=== PATIENT | female | born 1995 | race Two or more races ===

== ENCOUNTER 2024-08-06 00:52 | Emergency (ER) | payer MEDICAID, SELFPAY ==
[2024-08-06 00:55] VITALS: BMI 25.4
[2024-08-06 01:08] VITALS: BP 121/82; PULSE 85; RESP 18; TEMP 36.8; O2SAT 97
--- NOTE | 2024-08-06 01:21 | XR_ITS ---
Examination: Foot, right, 3 views Technique: AP, oblique, lateral views foot, 3 views Date and time of exam: August 06, 2024 0127 hours INDICATIONS: Patient stepped on nail 4 hours ago with injury to foot, foot pain FINDINGS: No acute fracture No dislocation No opaque foreign body IMPRESSION: No opaque foreign body
--- NOTE | 2024-08-06 01:23 | EDNOTE_ITS ---
Lower Extremity Injury RME/HPI General Chief Complaint: Ankle/Foot Injury Stated Complaint: STEPPED ON MANE NAIL ABOUT 4 HRS AGO R FOOT Time Seen by Provider: 08/06/24 01:01 Arrival date/time: 08/06/24 00:52 RME / HPI RME / HPI Narrative: Very pleasant 28-year-old female presents to the ED with a complaint of right foot pain secondary to stepping on a mane nail. She states she was wearing rubber soled sandals. She was playing volleyball when the ball went out into the field, she went after it and stepped on a mane nail. She pulled it out immediately. Her last tetanus shot was when she was in high school, greater than 10 years. She took Motrin prior to arrival. She denies any numbness or tingling distally. Related Data Previous Rx's ?Medication ?Instructions ?Recorded cephalexin 500 mg capsule 500 mg PO BID 5 days #10 cap s 08/06/24 Allergies Allergy/AdvReac Type Severity Reaction Status Date / Time amoxicillin Allergy Unknown Verified 08/06/24 01:02 Review of Systems Review of Systems Systems Reviewed: All systems reviewed, normal except as documented Past Medical History Past Medical History CARDIAC: Negative Congestive Heart Failure RESPIRATORY: Negative Chronic Obstructive Pulmonary Disease (COPD) GENITOURINARY: Negative Renal Disease ENDOCRINE: Negative Diabetes Mellitus Type 1 or Diabetes Mellitus Type 2 Social History SMOKING STATUS: Never smoker ED Exam Narrative Physical exam: Alert and oriented, very pleasant 28-year-old female, no acute distress. Lungs are clear, regular rate and rhythm without murmurs. Small puncture wound noted to the plantar surface of the right foot. No erythema noted. No drainage. Minimal tenderness surrounding the puncture wound site. CMS intact distally. Course Course Course Narrative: Tdap updated. Wound was cleansed and irrigated. Right foot x-ray obtained. No obvious foreign body noted. Quality Measures none Orders Category Date Time Status Cleanse Wound NEEDED Care 08/06/24 01:26 Completed TDap [Obtain Tdap Consent] X1 Care 08/06/24 01:21 Completed XR foot comp RT min 3V Stat Exams 08/06/24 01:21 Taken TET,DIP/PERT AC (Adult)-Tdap [Boostrix Adult (Tdap) Med 08/06/24 01:21 Discontinued Vacc] 0.5 ml IMI .ONCE ONE Vital Signs Vital signs: Vital Signs Temperature 98.3 F 08/06/24 01:08 Pulse Rate 85 08/06/24 01:08 Respiratory Rate 18 08/06/24 01:08 Blood Pressure 121/82 08/06/24 01:08 Pulse Oximetry (%) 97 08/06/24 01:08 Oxygen Delivery Method Room Air 08/06/24 01:08 Extremity Injury, Lower MDM Narrative MDM Narrative:: Very pleasant 28-year-old female presents to the ED with a complaint of right foot pain secondary to stepping on a mane nail. She states she was wearing rubber soled sandals. She was playing volleyball when the ball went out into the field, she went after it and stepped on a mane nail. She pulled it out immediately. Her last tetanus shot was when she was in high school, greater than 10 years. She took Motrin prior to arrival. She denies any numbness or tingling distally. Alert and oriented, very pleasant 28-year-old female, no acute distress. Lungs are clear, regular rate and rhythm without murmurs. Small puncture wound noted to the plantar surface of the right foot. No erythema noted. No drainage. Minimal tenderness surrounding the puncture wound site. CMS intact distally. Tdap updated. Wound was cleansed and irrigated. Right foot x-ray obtained. No obvious foreign body noted. Patient was discharged home in stable and improved condition with a prescription for Keflex 500 mg twice daily x 5 days to prevent infection. Patient data External records reviewed:: None Clinical information provided by:: patient Social determinants that could affect healthcare access:: none Patient has the following chronic illnesses:: N/A How is presenting disease/condition affected by chronic disease/condition?: no chronic disease Evaluation data The following diagnostics were reviewed and interpreted by me:: radiology exam(s) Lab and/or radiology exams considered but not ordered:: N/A Interpretation Summary: Right foot: No obvious foreign body noted. Medications / Prescriptions Medications or Prescriptions considered but not ordered:: N/A Medication administrations:: Medication Administration History Discontinued Medications Diphtheria/Tetanus/Acell Pertussis (Diphth,Pertuss(Acell),Tet Vac 0.5 Ml Syr- Adult) 0.5 ml IMi .ONCE ONE Stop: 08/06/24 01:22 Last Admin: 08/06/24 01:54 Dose: 0.5 ml Documented By: JEAN Tuckernavid given/updated. Consultations Consultation(s) initiated? (list below): No Diagnosis Extremity Injury, Lower Differential Diagnosis: puncture wound of foot Most likely diagnosis given after review of the tests above:: Puncture wound right foot Admission Indicated Admission indicated?: not indicated Explain why admission is indicated or not indicated:: Patient is stable for discharge Admission Request Was there a request for admission?: No Admission Attestation Admission request attestation: N/A Disposition Plan Disposition Plan: Discharge Discharge Attestation Discharge Attestation: The patient and all family members were given an opportunity to ask questions and understood the discharge instructions. Discharge instructions specifically effects, indications for sooner follow up or return to the emergency department, and the expected course of current diagnosis. Patient condition: Stable Discharge Plan Plan Patient Disposition: HOME (Self Care) Discharge Disposition comment: Stable and improved Prescriptions/Referrals Prescriptions/Med Rec: New cephalexin 500 mg capsule 500 mg PO BID 5 Days Qty: 10 0RF Referrals: No Primary/Family,Physician [Primary Care Provider] - In 1 week Problem List Clinical Impression: Puncture wound of foot Patient/Caregiver Discharge Instructions Education Materials: ED Puncture Wound (Foot) Additional Instructions: Take the antibiotics as prescribed to prevent infection from the puncture wound. Follow-up with your primary care physician in 24 to 48 hours. Return to the ED for any new or worsening symptoms. Print Language: Slovak Stand Alone Forms: Britt Award Info., Patient Portal Info Letter Vaccines Vaccines Given During Stay: TDaP PA/JUANA Supervising Physician PATRICK/JUANA Supervising Physician: Dr. Campa
[2024-08-06] MEDS: DIPHTH,PERTUSS(ACELL),TET VAC 0.5 ML SYR- ADULT IMi (01:54)
== END 2024-08-06 02:15 | disposition home or self-care (01) ==
PROVIDERS: Emergency Provider Emergency Medicine
DX: S91.332A Puncture wound without foreign body, left foot, initial encounter (principal); W45.0XXA Nail entering through skin, initial encounter; Z23 Encounter for immunization
CPT/HCPCS: 73630; 90471; 90715; 99283